=== PATIENT | female | born 1995 | race Caucasian/White ===

== ENCOUNTER 2016-06-19 18:21 | Emergency (ER) | payer BC ==
[2016-06-19 20:13] VITALS: BP 140/63
[2016-06-19] MEDS ORDERED: Albuterol HFA INHALER* 8 gm MDI INH ONE (20:13)
--- NOTE | 2016-06-19 20:19 | UC ---
Throat Pain/Nasal César HPI - HPI Summary HPI Summary: sinus issues for 6 weeks, was treated with abx without good results, still congested and wheezy - History of Current Complaint Chief Complaint: UCGeneralIllness Stated Complaint: COUGH,ERNANDEZ,CONGESTION Hx Obtained From: Patient Hx Last Menstrual Period: 06/08/16 ?: No Onset/Duration: Sudden Onset, Lasting Weeks Severity: Moderate Pain Intensity: 6 Pain Scale Used: 0-10 Numeric Cough: Nonproductive Associated Signs & Symptoms: Positive: Wheezing, Sinus Discomfort, Nasal Discharge - Epiglottits Risk Factors Epiglottis Risk Factors: Negative - Allergies/Home Medications Allergies/Adverse Reactions: Allergies Allergy/AdvReac Type Severity Reaction Status Date / Time Shellfish Allergy Allergy Difficulty Verified 06/19/16 20:13 Breathing Home Medications: Home Medications Ortho Cyclen 1 tab BEDTIME 06/19/16 [History Confirmed 06/19/16] PMH/Surg Hx/FS Hx/Imm Hx Previously Healthy: Yes Respiratory History Of: Reports: Asthma - Surgical History Surgical History: Yes Surgery Procedure, Year, and Place: dental implant - Family History Known Family History: Positive: Cardiac Disease, Respiratory Disease Negative: Hypertension - Social History Alcohol Use: Occasionally Substance Use Type: None Smoking Status (MU): Never Smoked Tobacco - Immunization History Most Recent Influenza Vaccination: none Review of Systems Constitutional: Fatigue Skin: Negative Eyes: Negative ENT: Sore Throat, Nasal Discharge Respiratory: Shortness Of Breath, Cough Cardiovascular: Negative Gastrointestinal: Negative Genitourinary: Negative Motor: Negative Neurovascular: Negative Musculoskeletal: Negative Neurological: Negative Psychological: Negative All Other Systems Reviewed And Are Negative: Yes Physical Exam Triage Information Reviewed: Yes Appearance: Well-Nourished, Ill-Appearing, Pain Distress Vital Signs: Initial Vital Signs Temp 98.4 F 06/19/16 20:07 Pulse 69 06/19/16 20:07 Resp 16 06/19/16 20:07 BP 140/63 06/19/16 20:07 Pulse Ox 100 06/19/16 20:07 Vital Signs Reviewed: Yes Eye Exam: Normal Eyes: Positive: Conjunctiva Clear ENT Exam: Normal ENT: Positive: Hearing grossly normal, Pharyngeal erythema, Nasal congestion, Nasal drainage, TM bulging Dental Exam: Normal Neck exam: Normal Neck: Positive: Supple, Nontender, No Lymphadenopathy Respiratory Exam: Normal Respiratory: Positive: No respiratory distress, No accessory muscle use, Decreased breath sounds, Wheezing, Inspiration Cardiovascular Exam: Normal Cardiovascular: Positive: RRR, No Murmur, Pulses Normal Abdominal Exam: Normal Abdomen Description: Positive: Nontender, No Organomegaly, Soft Bowel Sounds: Positive: Present Musculoskeletal Exam: Normal Musculoskeletal: Positive: Strength Intact, ROM Intact, No Edema Neurological Exam: Normal Neurological: Positive: Alert, Muscle Tone Normal Psychological Exam: Normal Skin Exam: Normal Throat Pain/Nasal Course/Dx - Course Course Of Treatment: hx obtained, exam performed. meds reviewed, ventolin dispensed, prednisone prescribed. educated on symptom relief - Differential Dx/Diagnosis Differential Diagnosis/HQI/PQRI: Influenza, Laryngitis, Otitis Media, Pharyngitis, Sinusitis, Tonsillitis, Other Provider Diagnoses: bronchitis. nasal congestion Discharge - Discharge Plan Condition: Stable Disposition: HOME Prescriptions: predniSONE TAB* [Deltasone TAB*] 40 mg PO DAILY #10 tab Patient Education Materials: Acute Bronchitis (ED) Additional Instructions: take the medication as prescribed. Increase your fluid intake and get plenty of rest. USe the Ventolin every 4 hours for wheezing and shortness of breath.
== END 2016-06-19 20:30 | disposition home or self-care (01) ==
LOC: UCCORT 18:21
DX: J40 Bronchitis, not specified as acute or chronic (principal); R09.81 Nasal congestion
CPT/HCPCS: 99212; A9270-GY; G0463